=== PATIENT | male | born 1995 | race Caucasian/White ===

== ENCOUNTER 2017-02-22 10:58 | Emergency (ER) | payer OTHER ==
[~2017-02-22] VITALS: Ht 170.2 cm; Wt 63.6 kg
[2017-02-22 13:49] VITALS: BP 129/89
== END 2017-02-22 13:49 | disposition home or self-care (01) ==
LOC: ED 10:58
DX: S02.2XXA Fracture of nasal bones, initial encounter for closed fracture (principal); H11.31 Conjunctival hemorrhage, right eye; Y04.8XXA Assault by other bodily force, initial encounter

== ENCOUNTER 2020-06-03 11:07 | Emergency (ER) | payer OTHER ==
[~2020-06-03] VITALS: Ht 175.3 cm; Wt 75.3 kg
[2020-06-03 11:11] VITALS: BP 117/61; Ht 175.3 cm; Wt 75.3 kg
== END 2020-06-03 11:45 | disposition home or self-care (01) ==
LOC: ED 11:07
DX: M54.6 Pain in thoracic spine (principal); M25.511 Pain in right shoulder; J45.909 Unspecified asthma, uncomplicated